=== PATIENT | male | born 1955 | race Caucasian/White ===

== ENCOUNTER 2018-06-25 12:00 | Inpatient (IN) | payer OTHER ==
[~2018-06-25] VITALS: Ht 172.7 cm; Wt 80.7 kg
[2018-06-25] MEDS ORDERED: NEURONTIN600 MG PO (13:51)
[2018-06-25] MEDS ORDERED: ZYPREXA ZYDIS5 MG PO (13:52)
[2018-06-25] MEDS ORDERED: CYMBALTA60 MG PO (13:52)
[2018-06-25] MEDS ORDERED: DICLOFENAC-MIS1 EACH PO (13:52)
[2018-06-25] MEDS ORDERED: RESTORIL30 M1 PO (13:52)
[2018-06-25] MEDS ORDERED: GLUMETZA500 MG PO (13:53)
[2018-06-25] MEDS ORDERED: ZOCOR5 MG PO (13:53)
[2018-07-04] MEDS ORDERED: COLACE100 MG PO (10:03)
[2018-07-04] MEDS ORDERED: NEURONTIN800 MG PO (10:03)
[2018-07-04] MEDS ORDERED: AMOX-CLAV 875-1 EACH PO (10:05)
[2018-07-04] MEDS ORDERED: CLONAZEPAM0.5 M1 PO (10:06)
[2018-07-04] MEDS ORDERED: PERCOCET 5-3251 EACH PO (10:06)
== END 2018-07-05 13:20 | disposition home or self-care (01) | DRG 454 ==
LOC: O/R 07-04 05:45 → SURH 07-04 05:45 → O/R 07-04 12:00 → SURH 07-04 14:37
PROVIDERS: ADMIT Orthopaedic Surgery Orthopaedic Surgery of the Spine
PROC: 0SG0071 Fusion of Lumbar Vertebral Joint with Autologous Tissue Substitute, Posterior Approach, Posterior Column, Open Approach (ICD-10-PCS; 2018-07-04)
PROC: 0SG00AJ Fusion of Lumbar Vertebral Joint with Interbody Fusion Device, Posterior Approach, Anterior Column, Open Approach (ICD-10-PCS; 2018-07-04)
PROC: 0ST20ZZ Resection of Lumbar Vertebral Disc, Open Approach (ICD-10-PCS; 2018-07-04)
PROC: 07DS3ZZ Extraction of Vertebral Bone Marrow, Percutaneous Approach (ICD-10-PCS; 2018-07-04)
PROC: 0SG00A0 Fusion of Lumbar Vertebral Joint with Interbody Fusion Device, Anterior Approach, Anterior Column, Open Approach (ICD-10-PCS; principal; 2018-07-04 12:30)
DX: M47.16 Other spondylosis with myelopathy, lumbar region (principal); M51.06 Intervertebral disc disorders with myelopathy, lumbar region; M48.062 Spinal stenosis, lumbar region with neurogenic claudication; I10 Essential (primary) hypertension